=== PATIENT | female | born 1955 | race Caucasian/White ===

== ENCOUNTER 2018-11-05 07:13 | Emergency (ER) | payer MEDICARE, MEDICAID ==
[2018-11-05 07:50] LABS: ABS Basophils 0 10^3/ul (0-0.2); ABS Eosinophils 0.1 10^3/ul (0-0.6); ABS Lymphocytes 1.8 10^3/ul (1.0-4.8); ABS Monocytes 0.5 10^3/ul (0-0.8); ABS Neutrophils 2.3 10^3/ul (1.5-7.7); ABS Nucleated RBC 0 10^3/ul; Eosinophil % 1.4 %; Hematocrit 37 % (35-47); Hemoglobin 12.6 g/dl (12.0-16.0); Lymphocyte % 38.9 %; Mean Corpuscular HGB Conc 34 g/dl (31-36); Mean Corpuscular Hemoglobin 34 pg (27-31); Mean Corpuscular Volume 99 fL (80-97); Mean Platelet Volume 7.9 fL (7.4-10.4); Nucleated Red Blood Cells % 0.2; Platelet Count 355 10^3/ul (150-450); Red Blood Count 3.71 10^6/ul (4.00-5.40); Red Cell Distribution Width 13 % (10.5-15); White Blood Count 4.7 10^3/ul (3.5-10.8)
[2018-11-05 07:52] LABS: INR 0.85 (0.77-1.02)
[2018-11-05 08:07] LABS: Albumin 3.9 g/dL (3.2-5.2); Albumin/Globulin Ratio 1.3 (1-3); BUN/Creatinine Ratio 30.6 (8-20); Calcium 9.1 mg/dL (8.6-10.3); EGFR African American 99.6 (>60); EGFR Non-African American 82.3 (>60); Magnesium 1.8 mg/dL (1.9-2.7); Potassium 3.1 mmol/L (3.5-5.0); Total Bilirubin 0.4 mg/dL (0.2-1.0); Total Protein 6.9 g/dL (6.4-8.9); Troponin I 0.02 ng/mL (<0.04)
[2018-11-05 09:54] VITALS: BP 131/86
--- NOTE | 2018-11-05 12:41 | ED ---
Upper Extremity Pain - HPI Summary HPI Summary: 43-year-old female with a history of chronic neck and shoulder problems presenting to the ED with right arm numbness and tingling which is been intermittent since yesterday. She states she has a history of carpal tunnel and has experienced intermittent numbness and tingling to the hand, but this is the first time the numbness and tingling has been presenting to the entire arm. She denies any cardiac history. Denies any CP or SOB. She states the pain radiates to the right chest wall and is worse with palpation. Symptoms are not better with positioning or rest. She states she has received steroid injections in the past with some relief. She has not seen an orthopedic physician about her symptoms. - History of Current Complaint Chief Complaint: EDChestPainROMI Stated Complaint: NUMBNESS/TINGLING IN LEFT ARM/RT SIDE CHEST PAIN Time Seen by Provider: 11/05/18 07:28 Hx Obtained From: Patient Onset/Duration: Started Weeks Ago Timing: Constant Severity Initially: Mild Severity Currently: Mild Pain Location: Shoulder Character: Aching Aggravating Factor(s): Movement, Lifting, Flexion, Extension Alleviating Factor(s): Rest, Ice Associated Signs & Symptoms: Positive: Negative - Risk Factors Non-Orthopedic Risk Factor: Negative DVT Risk Factors: Negative Septic Arthritis Risk Factor: Negative Compartment Syndrome Risk Factors: Pain, Paresthesias - Allergies/Home Medications Allergies/Adverse Reactions: Allergies Allergy/AdvReac Type Severity Reaction Status Date / Time bupropion Allergy Anxiety Verified 11/05/18 07:22 shrimp Allergy Anaphylatic Verified 11/05/18 07:22 Shock zolpidem [From Ambien] Allergy Altered Verified 11/05/18 07:22 Mental Status PMH/Surg Hx/FS Hx/Imm Hx Previously Healthy: Yes Cardiovascular History: Reports: Hx Hypertension Respiratory History: Reports: Hx Asthma - Immunization History Hx Pertussis Vaccination: No Immunizations Up to Date: Yes Infectious Disease History: No Infectious Disease History: Reports: Hx Hepatitis - HEP C, Hx Human Immunodeficiency Virus (HIV) Denies: Traveled Outside the [place] in Last 30 Days - Family History Known Family History: Positive: Hypertension - Social History Occupation: Employed Full-time Lives: With Family Alcohol Use: Occasionally Hx Substance Use: No Substance Use Type: Reports: None Hx Tobacco Use: Yes Smoking Status (MU): Current Some Day Smoker Review of Systems Constitutional: Negative Negative: Fever, Chills, Fatigue, Skin Diaphoresis Negative: Palpitations, Chest Pain Negative: Shortness Of Breath, Cough Genitourinary: Negative Positive: no symptoms reported, see HPI Positive: Arthralgia - right neck pain radiating to the R hand with paresthesias. Negative: Myalgia Positive: Weakness, Paresthesia, Numbness Psychological: Normal All Other Systems Reviewed And Are Negative: Yes Physical Exam Triage Information Reviewed: Yes Vital Signs On Initial Exam: Initial Vitals Temp Pulse Resp BP Pulse Ox 97.8 F 71 16 122/78 95 11/05/18 07:17 11/05/18 07:17 11/05/18 07:17 11/05/18 07:17 11/05/18 07:17 Vital Signs Reviewed: Yes Appearance: Positive: Well-Nourished Skin: Positive: Warm, Skin Color Reflects Adequate Perfusion Head/Face: Positive: Normal Head/Face Inspection Eyes: Positive: EOMI, VETO, Conjunctiva Clear Neck: Positive: Supple, No Lymphadenopathy Respiratory/Lung Sounds: Positive: Clear to Auscultation, Breath Sounds Present Cardiovascular: Positive: RRR, Pulses are Symmetrical in both Upper and Lower Extremities. Negative: Leg Edema Left, Leg Edema Right Musculoskeletal: Positive: Pain @ - right neck pain radiating to the R hand with paresthesias Neurological: Positive: Alert, Oriented to Person Place, Time, Speech Normal Psychiatric: Positive: Affect/Mood Appropriate Diagnostics - Vital Signs Vital Signs Temp Pulse Resp BP Pulse Ox 11/05/18 09:30 97.7 F 79 16 131/86 98 11/05/18 09:26 131/86 11/05/18 09:01 69 16 141/78 98 11/05/18 09:00 68 18 97 11/05/18 08:31 68 15 127/75 96 11/05/18 08:02 66 11 125/69 97 11/05/18 08:00 68 16 94 11/05/18 07:31 70 25 120/78 95 11/05/18 07:17 97.8 F 71 16 122/78 95 - Laboratory Lab Results: Lab Results 11/05/18 11/05/18 11/05/18 Range/Units 07:36 07:36 07:36 WBC 4.7 (3.5-10.8) 10^3/ul RBC 3.71 L (4.00-5.40) 10^6/ul Hgb 12.6 (12.0-16.0) g/dl Hct 37 (35-47) % MCV 99 H (80-97) fL MCH 34 H (27-31) pg MCHC 34 (31-36) g/dl RDW 13 (10.5-15) % Plt Count 355 (150-450) 10^3/ul MPV 7.9 (7.4-10.4) fL Neut % (Auto) 49.1 % Lymph % (Auto) 38.9 % Cavalier % (Auto) 9.9 % Eos % (Auto) 1.4 % Baso % (Auto) 0.7 % Absolute Neuts (auto) 2.3 (1.5-7.7) 10^3/ul Absolute Lymphs (auto) 1.8 (1.0-4.8) 10^3/ul Absolute Monos (auto) 0.5 (0-0.8) 10^3/ul Absolute Eos (auto) 0.1 (0-0.6) 10^3/ul Absolute Basos (auto) 0 (0-0.2) 10^3/ul Absolute Nucleated RBC 0 10^3/ul Nucleated RBC % 0.2 INR (Anticoag Therapy) 0.85 (0.77-1.02) Sodium 138 (135-145) mmol/L Potassium 3.1 L (3.5-5.0) mmol/L Chloride 105 (101-111) mmol/L Carbon Dioxide 25 (22-32) mmol/L Anion Gap 8 (2-11) mmol/L BUN 22 (6-24) mg/dL Creatinine 0.72 (0.51-0.95) mg/dL Est GFR ( Amer) 99.6 (>60) Est GFR (Non-Af Amer) 82.3 (>60) BUN/Creatinine Ratio 30.6 H (8-20) Glucose 99 (70-100) mg/dL Lactic Acid (0.5-2.0) mmol/L Calcium 9.1 (8.6-10.3) mg/dL Magnesium 1.8 L (1.9-2.7) mg/dL Total Bilirubin 0.40 (0.2-1.0) mg/dL AST 14 (13-39) U/L ALT 15 (7-52) U/L Alkaline Phosphatase 107 H (34-104) U/L Total Creatine Kinase 62 (10-223) U/L Troponin I 0.02 (<0.04) ng/mL Total Protein 6.9 (6.4-8.9) g/dL Albumin 3.9 (3.2-5.2) g/dL Globulin 3.0 (2-4) g/dL Albumin/Globulin Ratio 1.3 (1-3) 11/05/18 Range/Units 07:36 WBC (3.5-10.8) 10^3/ul RBC (4.00-5.40) 10^6/ul Hgb (12.0-16.0) g/dl Hct (35-47) % MCV (80-97) fL MCH (27-31) pg MCHC (31-36) g/dl RDW (10.5-15) % Plt Count (150-450) 10^3/ul MPV (7.4-10.4) fL Neut % (Auto) % Lymph % (Auto) % Cavalier % (Auto) % Eos % (Auto) % Baso % (Auto) % Absolute Neuts (auto) (1.5-7.7) 10^3/ul Absolute Lymphs (auto) (1.0-4.8) 10^3/ul Absolute Monos (auto) (0-0.8) 10^3/ul Absolute Eos (auto) (0-0.6) 10^3/ul Absolute Basos (auto) (0-0.2) 10^3/ul Absolute Nucleated RBC 10^3/ul Nucleated RBC % INR (Anticoag Therapy) (0.77-1.02) Sodium (135-145) mmol/L Potassium (3.5-5.0) mmol/L Chloride (101-111) mmol/L Carbon Dioxide (22-32) mmol/L Anion Gap (2-11) mmol/L BUN (6-24) mg/dL Creatinine (0.51-0.95) mg/dL Est GFR ( Amer) (>60) Est GFR (Non-Af Amer) (>60) BUN/Creatinine Ratio (8-20) Glucose (70-100) mg/dL Lactic Acid 0.7 (0.5-2.0) mmol/L Calcium (8.6-10.3) mg/dL Magnesium (1.9-2.7) mg/dL Total Bilirubin (0.2-1.0) mg/dL AST (13-39) U/L ALT (7-52) U/L Alkaline Phosphatase (34-104) U/L Total Creatine Kinase (10-223) U/L Troponin I (<0.04) ng/mL Total Protein (6.4-8.9) g/dL Albumin (3.2-5.2) g/dL Globulin (2-4) g/dL Albumin/Globulin Ratio (1-3) Result Diagrams: 11/05/18 07:36 11/05/18 07:36 Lab Statement: Any lab studies that have been ordered have been reviewed, and results considered in the medical decision making process. Course/Dx - Course Course Of Treatment: On physical examination, patient has pain to palpation bilaterally to the shoulders. She is unable to abduct the right shoulder due to pain. She states the pain is from the right side of the neck which radiates down into the right arm. She states this been present for several months, however is now presenting as numbness and tingling. This is intermittent and she denies any numbness and tingling at this time. She states symptoms resolved after stretching. She was concerned over a possible cardiac component due to right-sided chest pain radiating from the right shoulder. EKG obtained which shows a normal sinus rhythm, LVH by voltage. Lungs CTA. RRR. Chest x- ray obtained and shows no acute cardiopulmonary disease. Labs obtained which show a troponin of 0.02 and otherwise WNL. Patient is able to rotate about the neck with mild discomfort. She will follow-up with orthopedics and her primary physician regarding an impingement versus tendinopathy syndrome. I'm not concerned over a cardiac component at this time. - Diagnoses Differential Diagnosis/HQI/PQRI: Positive: Strain, Sprain Provider Diagnoses: Paresthesia, Impingement syndrome, shoulder Discharge - Sign-Out/Discharge Documenting (check all that apply): Patient Departure Patient Received Moderate/Deep Sedation with Procedure: No - Discharge Plan Condition: Stable Disposition: HOME Patient Education Materials: Paresthesia (ED) Referrals: Gurpreet Acosta MD [Medical Doctor] - Shan CROUCH,David Garcia [Primary Care Provider] - Additional Instructions: Please follow up with orthopedics - Billing Disposition and Condition Condition: STABLE Disposition: Home
== END 2018-11-05 09:30 | disposition home or self-care (01) ==
LOC: ED 07:13
DX: R20.2 Paresthesia of skin (principal); M75.41 Impingement syndrome of right shoulder; I10 Essential (primary) hypertension; J45.909 Unspecified asthma, uncomplicated; B19.20 Unspecified viral hepatitis C without hepatic coma
CPT/HCPCS: 36415; 71046; 80053; 82550; 83605; 83735; 84484; 85025; 85610; 93005; 99283

== ENCOUNTER → 2019-01-25 08:36 | Day surgery (SDC) | payer MEDICARE, MEDICAID ==
[~2019-01-25 08:36] MED LIST: Acetaminophen TAB* 325 MG PO PRN; Buffered Lidocaine 1% SYRIN* 1 ML/SYRINGE INTRADERM ONE; Bupivacaine 0.25% SDV PF* 10 ML VIAL INJ ONE; Bupivacaine 0.5% W/EPI SDV* 30 ML VIAL ONE; Dexamethasone IV* 4 MG/ML 1 ML (4 MG) ONE; DiMENhydriNATE IV* 50 MG/ML VIAL IV PUSH PRN; Famotidine IV* 10 MG/ML 2 ML (20 mg) ONE; HYDROcodone/ACETAMIN 5-325 MG* 1 TAB PO PRN; Ketorolac INJ* 30 MG/ML 1 ML VIAL ONE; Lactated Ringers 1000 ML Bag* 1,000 ML IV SCH; Levalbuterol 0.63MG/3ML NEB* UNIT OF USE INH PRN; Lidocaine 1% INJ* 10 MG/ML 30 ML SDV ONE; Midazolam* 1 MG/ML 2 ML VIAL (2 MG) ONE; Naloxone* 0.4 MG/ML 1 ML VIAL IV PRN; Ondansetron INJ* 2 MG/ML VIAL IV PRN; PROCHLORPERAZINE INJ 5 MG/ML 2 ML VIAL IV PRN; Propofol* 10 MG/ML 20 ML BTL ONE; ceFAZolin 2 GM PREMIX in ORs 2 GM/50 ML BAG IVPB ONE; diPHENhydraMINE IV* 50 MG/ML 1 ml VIAL (BENADRYL) IV PRN; fentaNYL* 50 MCG/ML 2 ML VIAL (100 MCG VIAL) ONE
[2019-01-25 12:49] VITALS: BP 146/87
--- NOTE | 2019-01-27 03:33 | OP ---
DATE OF OPERATION: 01/25/19 - [facility] DATE OF : 59 SURGEON: Gurpreet Acosta MD DIECAST MACHINE OPERATOR: ARNOLDO Lopez. A physician assistant director of security was required for the length of the procedure for assistance with the patient's positioning, retraction, and closure. ANESTHESIOLOGIST: Femi Dove MD ANESTHESIA: LMA general anesthesia, local anesthesia with 9 cc of 1:1 ratio of lidocaine and Marcaine with epinephrine. PRE-OP DIAGNOSIS: Right carpal tunnel syndrome. POST-OP DIAGNOSIS: Right carpal tunnel syndrome. OPERATIVE PROCEDURE: Endoscopic right carpal tunnel release. ANTIBIOTICS: 2 g Ancef IV. IV FLUIDS: 800 cc Lactated Ringer's. TOURNIQUET TIME: 36 minutes. An upper tourniquet set at 250 mmHg. SKIN TO SKIN TIME: 36 minutes. SPECIMEN: None. IMPLANTS: None. COMPLICATIONS: None. ESTIMATED BLOOD LOSS: Minimal. 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 EMG nerve conduction study confirmed diagnosis present as well by history and physical exam. The patient opted for surgery. Discussed performing endoscopic carpal tunnel with the option to convert to open as needed. Discussed risks and potential complications. DESCRIPTION OF PROCEDURE: In preoperative holding, the patient signed the written consent. Operative extremities marked in preoperative holding. The patient was taken back to the operating room and kept on the stretcher. LMA anesthesia produced by Dr. Dove. Hand table applied to the stretcher. A mini time-out performed. 9 cc of local anesthetic infused into the right distal forearm and wrist. The patient was prepped and draped. Formal surgical time-out performed. Esmarch was applied and tourniquet was elevated. Made a 1.5 cm incision in a wrist flexion crease. I dissected down directly to the distal volar forearm fascia. Incised that carefully. Retracted that proximally and distally. I first incised this fascia proximal to the incision, opening up nicely. Next, I explored distal to my incision. Passed [place] down the carpal tunnel. I could view contents of the carpal tunnel deep to my incision. Confirmed appropriateness of my area of interest with [place] elevator. Next, placed dilators. Next, placed cannula and endoscope. I had a clear view of the transverse fibres of the transverse carpal ligament. No tenderness or neurologic structure visible between my blade and the ligament. Incised starting at the 80% point proximal to distal. I then moved most distally and completed my resection from distal to proximal. Wide retraction of the ends of the transverse carpal ligament signifying complete release. Next, used a probe to confirm complete release. I confirmed with [place] complete proximal and distal release. Irrigation of wound. Closure of the skin with a single figure of 12 stitch using nylon 4-0 suture. Xeroform, 4x4s, sterile Webril, Coban, bulky dressing. Tourniquet was dropped. The patient was lightened of sedation and LMA was removed. The patient was transferred to the PACU. DISPOSITION: The patient is discharged home when medically stable. The patient was given limited number of tramadol to take as needed for pain control. Wound care instructions provided. The patient has a scheduled post- operative appointment with me in clinic 10 to 14 days postoperatively. The patient is scheduled for carpal tunnel release of the contralateral left wrist 14 days from now. [id number]/[facility] #: [id number] DEVENDRA
== END | disposition home or self-care (01) ==
LOC: OR 08:36
PROVIDERS: ATTEND Orthopaedic Surgery
DX: G56.01 Carpal tunnel syndrome, right upper limb (principal); I10 Essential (primary) hypertension; G47.33 Obstructive sleep apnea (adult) (pediatric); J45.909 Unspecified asthma, uncomplicated; Z87.891 Personal history of nicotine dependence; M54.12 Radiculopathy, cervical region
CPT/HCPCS: J0690; J1100; J1885; J2250; J2704; J3010; J3490

== ENCOUNTER 2019-04-26 23:56 | Emergency (ER) | payer MEDICARE, MEDICAID ==
[2019-04-27] MEDS ORDERED: Ketorolac INJ* 30 MG/ML 1 ML VIAL IM ONE (00:29)
[2019-04-27] MEDS ORDERED: oxyCODONE/Acetamin 5/325 MG* TAB PO ONE (00:30)
--- NOTE | 2019-04-27 00:36 | ED ---
Upper Extremity Pain - HPI Summary HPI Summary: This patient is a 63 year old female presenting to [facility] with a chief complaint of bilateral hand pain since 3 days ago. she has a Hx of osteoarthritis, knobby finger joints that are normal for her. She states she is having difficulty gripping. She states the pain radiates up her arms. - History of Current Complaint Chief Complaint: EDExtremityUpper Stated Complaint: ARM AND HAND PAIN PER EMS Time Seen by Provider: 04/27/19 00:19 Hx Obtained From: Patient Onset/Duration: Started Days Ago Timing: Constant, Lasting Days Pain Location: Hand - Allergies/Home Medications Allergies/Adverse Reactions: Allergies Allergy/AdvReac Type Severity Reaction Status Date / Time shrimp Allergy Severe Anaphylatic Verified 01/25/19 09:05 Shock zolpidem [From Ambien] Allergy Severe Altered Verified 01/25/19 09:05 Mental Status bupropion Allergy Anxiety Verified 01/25/19 09:05 PMH/Surg Hx/FS Hx/Imm Hx Cardiovascular History: Reports: Hx Hypertension Denies: Other Cardiovascular Problems/Disorders Respiratory History: Reports: Hx Asthma, Hx Sleep Apnea - BiPAP Denies: Other Respiratory Problems/Disorders GI History: Reports: Hx Gastroesophageal Reflux Disease - OMEPRAZOLE Denies: Other GI Disorders History: Reports: Other Problems/Disorders - Has had UTIs in the past, not recent Musculoskeletal History: Reports: Hx Arthritis - Osteoarthritis-shoulders, neck and spine, Hx Tendonitis - Bilateral carpal tunnel Denies: Other Musculoskeletal History Sensory History: Reports: Hx Contacts or Glasses - "Cheaters" Denies: Hx Cataracts, Hx Hearing Aid Opthamlomology History: Reports: Hx Contacts or Glasses - "Cheaters" Denies: Hx Cataracts Neurological History: Reports: Hx Nerve Disease - bilateral carpal tunnel Psychiatric History: Reports: Hx Depression - prozac - Surgical History Surgery Procedure, Year, and Place: Bilateral Hip Replacements [place]. [place] [facility] [place]. C Section 1980 Hx Anesthesia Reactions: No Infectious Disease History: Yes Infectious Disease History: Reports: Hx Hepatitis - HEP C, Hx Human Immunodeficiency Virus (HIV) Denies: Traveled Outside the [place] in Last 30 Days - Family History Known Family History: Positive: Hypertension - Social History Alcohol Use: Occasionally Alcohol Amount: once in a great while socially Hx Substance Use: No Substance Use Type: Reports: None Hx Tobacco Use: Yes Smoking Status (MU): Current Some Day Smoker Type: Cigarettes Amount Used/How Often: once a month Have You Smoked in the Last Year: Yes Review of Systems Positive: Other - Hand pain 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 GENERAL: Patient is a well-developed and nourished FEMALE who is lying comfortable in the stretcher. Patient is not in any acute respiratory distress. HEAD AND FACE: No signs of trauma. No ecchymosis, hematomas or skull depressions. No sinus tenderness. EYES: PERRLA, EOMI x 2, No injected conjunctiva, no nystagmus. EARS: Hearing grossly intact. Ear canals and tympanic membranes are within normal limits. MOUTH: Oropharynx within normal limits. NECK: Supple, trachea is midline, no adenopathy, no JVD, no carotid bruit, no c- spine tenderness, neck with full ROM. CHEST: Symmetric, no tenderness at palpation LUNGS: Clear to auscultation bilaterally. No wheezing or crackles. CVS: Regular rate and rhythm, S1 and S2 present, no murmurs or gallops appreciated. ABDOMEN: Soft, non-tender. No signs of distention. No rebound no guarding, and no masses palpated. Bowel sounds are normal. EXTREMITIES: FROM in all major joints. Bilateral swelling of PIP and DIP joints consistent with osteoarthritis. NEURO: Alert and oriented x 3. No acute neurological deficits. Speech is normal and follows commands. SKIN: Dry and warm Triage Information Reviewed: Yes Vital Signs On Initial Exam: Initial Vitals Temp Pulse Resp BP Pulse Ox 97.6 F 71 18 140/78 98 04/27/19 00:12 04/27/19 00:12 04/27/19 00:12 04/27/19 00:12 04/27/19 00:12 Vital Signs Reviewed: Yes Diagnostics - Vital Signs Vital Signs Temp Pulse Resp BP Pulse Ox 04/27/19 00:12 97.6 F 71 18 140/78 98 - Laboratory Lab Statement: Any lab studies that have been ordered have been reviewed, and results considered in the medical decision making process. Course/Dx - Course Course Of Treatment: This patient is a 63 year old female presenting to [facility] with a chief complaint of bilateral hand pain since 3 days ago. Physical exam revealed bilateral swelling of PIP and DIP joints consistent with osteoarthritis. She was instructed to follow up with her doctor naturopathic and she was prescribed percocet. A plan for discharge was discussed with the patient and she was agreeable with this plan. - Diagnoses Provider Diagnoses: Osteoarthritis of hands, bilateral Discharge - Sign-Out/Discharge Documenting (check all that apply): Patient Departure - Discharge Patient Received Moderate/Deep Sedation with Procedure: No - Discharge Plan Condition: Stable Disposition: HOME Patient Education Materials: Osteoarthritis (ED) Referrals: Shan CROUCH,David Garcia [Primary Care Provider] - Additional Instructions: Follow up with your doctor naturopathic. - Attestation Statements Document Initiated by Scribe: Yes Documenting Scribe: Dragan Rodriguez Provider For Whom Isaacibe is Documenting (Include Credential): Idania Edmonds MD Scribe Attestation: Dragan De Leon, scribed for Idania Edmonds MD on 04/27/19 at 0115. Status of Scribe Document: Ready
[2019-04-27] MEDS ORDERED: Morphine 4 MG/ML VIAL (1 ml) 4 MG/ML VIAL IM ONE (01:32)
[2019-04-27] MEDS ORDERED: PROCHLORPERAZINE INJ 5 MG/ML 2 ML VIAL IM ONE (01:32)
[2019-04-27 04:17] VITALS: BP 135/79
== END 2019-04-27 01:25 | disposition home or self-care (01) ==
LOC: ED 23:56
DX: M19.042 Primary osteoarthritis, left hand (principal); M19.041 Primary osteoarthritis, right hand; I10 Essential (primary) hypertension; J45.909 Unspecified asthma, uncomplicated; K21.9 Gastro-esophageal reflux disease without esophagitis; F17.210 Nicotine dependence, cigarettes, uncomplicated; Z79.899 Other long term (current) drug therapy; Z88.8 Allergy status to other drugs, medicaments and biological substances
CPT/HCPCS: 96372; 99282; A9270-GY; J0780; J1885; J2270

== ENCOUNTER 2019-05-26 22:13 | Emergency (ER) | payer MEDICARE, MEDICAID ==
[2019-05-26 22:21] VITALS: BP 115/70
--- NOTE | 2019-05-26 22:28 | ED ---
Medical Screening - HPI Summary HPI Summary: Patient presents for legal blood draw by PD. Denies any pain, injury or symptoms. Alert and oriented 4. - History of Current Complaint Chief Complaint: EDGeneral Stated Complaint: LEGAL BLOOD DRAW PER POLICE Time Seen by Provider: 05/26/19 22:27 PMH/Surg Hx/FS Hx/Imm Hx Cardiovascular History: Reports: Hx Hypertension Denies: Other Cardiovascular Problems/Disorders Respiratory History: Reports: Hx Asthma, Hx Sleep Apnea - BiPAP Denies: Other Respiratory Problems/Disorders GI History: Reports: Hx Gastroesophageal Reflux Disease - OMEPRAZOLE Denies: Other GI Disorders History: Reports: Other Problems/Disorders - Has had UTIs in the past, not recent Musculoskeletal History: Reports: Hx Arthritis - Osteoarthritis-shoulders, neck and spine, Hx Tendonitis - Bilateral carpal tunnel Denies: Other Musculoskeletal History Sensory History: Reports: Hx Contacts or Glasses - "Cheaters" Denies: Hx Cataracts, Hx Hearing Aid Opthamlomology History: Reports: Hx Contacts or Glasses - "Cheaters" Denies: Hx Cataracts Neurological History: Reports: Hx Nerve Disease - bilateral carpal tunnel Psychiatric History: Reports: Hx Depression - prozac - Surgical History Surgery Procedure, Year, and Place: Bilateral Hip Replacements [place]. [place] [facility] [place]. C Section 1981 Hx Anesthesia Reactions: No Infectious Disease History: No Infectious Disease History: Reports: Hx Hepatitis - HEP C, Hx Human Immunodeficiency Virus (HIV) Denies: Traveled Outside the [place] in Last 30 Days - Family History Known Family History: Positive: Hypertension - Social History Alcohol Use: Occasionally Alcohol Amount: once in a great while socially Hx Substance Use: No Substance Use Type: Reports: None Hx Tobacco Use: Yes Smoking Status (MU): Current Some Day Smoker Type: Cigarettes Amount Used/How Often: once a month Have You Smoked in the Last Year: Yes Review of Systems Constitutional: Negative Eyes: Negative ENT: Negative Cardiovascular: Negative Respiratory: Negative Gastrointestinal: Negative Genitourinary: Negative Musculoskeletal: Negative Skin: Negative Neurological: Negative Psychological: Normal All Other Systems Reviewed And Are Negative: Yes Physical Exam Triage Information Reviewed: Yes Vital Signs On Initial Exam: Initial Vitals Temp Pulse Resp BP Pulse Ox 97.6 F 77 18 115/70 95 05/26/19 22:19 05/26/19 22:19 05/26/19 22:19 05/26/19 22:19 05/26/19 22:19 Vital Signs Reviewed: Yes Appearance: Positive: Well-Appearing Skin: Positive: Warm Head/Face: Positive: Normal Head/Face Inspection Eyes: Positive: Normal Neck: Positive: Supple Respiratory/Lung Sounds: Positive: Clear to Auscultation Cardiovascular: Positive: Normal Abdomen Description: Positive: Nontender Musculoskeletal: Positive: Normal Neurological: Positive: Normal Psychiatric: Positive: Normal AVPU Assessment: Alert - Nolan Coma Scale Best Eye Response: 4 - Spontaneous Best Motor Response: 6 - Obeys Commands Best Verbal Response: 5 - Oriented Coma Scale Total: 15 Diagnostics - Vital Signs Vital Signs Temp Pulse Resp BP Pulse Ox 05/26/19 22:19 97.6 F 77 18 115/70 95 - Laboratory Lab Statement: Any lab studies that have been ordered have been reviewed, and results considered in the medical decision making process. Course/Dx - Course Course Of Treatment: Legal blood draw by PD. Vital signs within normal limits. - Diagnoses Provider Diagnoses: Routine lab draw Discharge ED - Sign-Out/Discharge Documenting (check all that apply): Patient Departure Patient Received Moderate/Deep Sedation with Procedure: No - Discharge Plan Condition: Stable Disposition: HOME Referrals: Shan CROUCH,David Garcia [Primary Care Provider] - - Billing Disposition and Condition Condition: STABLE Disposition: Home
== END 2019-05-26 22:44 | disposition home or self-care (01) ==
LOC: ED 22:13
DX: Z04.89 Encounter for examination and observation for other specified reasons (principal); I10 Essential (primary) hypertension; J45.909 Unspecified asthma, uncomplicated; K21.9 Gastro-esophageal reflux disease without esophagitis; F32.9 Major depressive disorder, single episode, unspecified; Z72.0 Tobacco use
CPT/HCPCS: 99281

== ENCOUNTER 2022-10-12 13:18 | Observation (INO) ==
[2022-10-12] MEDS ORDERED: NS 0.9% 1000 ml BAG 1,000 ML IV ONE ×2 (14:50→16:33)
[2022-10-12 15:54] LABS: INR 1.07 (0.88-1.18)
[2022-10-12 16:00] LABS: ABS Lymphocytes 1.4 10^3/ul (1.0-4.8); ABS Monocytes 1.5 10^3/ul (0-0.8); ABS Neutrophils 5.4 10^3/ul (1.5-7.7); Eosinophil % 0.3 %; Hematocrit 43 % (35-47); Hemoglobin 14.8 g/dL (12.0-16.0); Mean Corpuscular HGB Conc 35 g/dL (31-36); Mean Corpuscular Hemoglobin 34 pg (27-31); Mean Corpuscular Volume 97 fL (80-97); Mean Platelet Volume 8.6 fL (7.4-10.4); Nucleated Red Blood Cells % 0.2; Platelet Count 390 10^3/uL (150-450); Red Blood Count 4.43 10^6 /uL (3.70-4.87); Red Cell Distribution Width 13 % (10-15); White Blood Count 8.5 10^3/uL (3.5-10.8)
[2022-10-12 16:35] LABS: Albumin 4.1 g/dL (3.2-5.2); Albumin/Globulin Ratio 1.3 (1-3); C Reactive Protein 201.19 mg/L (<8.01); Calcium 9.5 mg/dL (8.6-10.3); Creatinine, Serum 4.27 mg/dL (0.51-0.95); Globulin 3.2 g/dL (2-4); Magnesium 1.9 mg/dL (1.9-2.7); Potassium 2.9 mmol/L (3.5-5.0); Total Bilirubin 0.3 mg/dL (0.2-1.0); Total Protein 7.3 g/dL (6.4-8.9)
[2022-10-12] MEDS ORDERED: Potassium Chlor 20 meq TAB.ER PO ONE (16:42)
[2022-10-12] MEDS ORDERED: KCL 10 MEQ/50 ML IVPREMIX 10 MEQ/50 ML BAG IV ONE (16:42)
[2022-10-12 18:43] LABS: Osmolality Serum 300 mOsm/kg (275-295)
[2022-10-12] MEDS: cefTRIAXone 1 gm/50 mL D5W 1 GM/50 ML BAG IV SCH (19:46)
[2022-10-12] MEDS ORDERED: Albuterol/Ipratropium NEB.SOL (2.5/0.5 MG) 3 ML NEB.SOLN INH PRN (20:47)
[2022-10-12] MEDS ORDERED: Heparin 5000 UNITS/ML 1 mL VIAL SUBCUT SCH (21:00)
[2022-10-12] MEDS: metroNIDAZOLE IV 500 MG/100ML 500 MG/100 ML BAG IVPB SCH (21:12)
[2022-10-12] MEDS: Heparin 5000 UNITS/ML 1 mL VIAL SUBCUT SCH (23:26)
[2022-10-12] MEDS: NS 0.9% w/ 20 Meq KCL 1000 ml 1,000 ML IV SCH (23:29)
[2022-10-12 23:50] LABS: Calcium 8.4 mg/dL (8.6-10.3); Creatinine, Serum 4.41 mg/dL (0.51-0.95); Potassium 3.2 mmol/L (3.5-5.0); eGFR CKD-EPI 10.5 (>60)
[2022-10-13] MEDS: metroNIDAZOLE IV 500 MG/100ML 500 MG/100 ML BAG IVPB SCH ×3 (03:46→20:12)
[2022-10-13] MEDS: Heparin 5000 UNITS/ML 1 mL VIAL SUBCUT SCH ×3 (05:23→20:22)
[2022-10-13 05:56] LABS: ABS Eosinophils 0.1 10^3/ul (0-0.6); ABS Lymphocytes 1.7 10^3/ul (1.0-4.8); ABS Monocytes 1.3 10^3/ul (0-0.8); ABS Neutrophils 3.7 10^3/ul (1.5-7.7); Eosinophil % 1.1 %; Hematocrit 35 % (35-47); Hemoglobin 12.4 g/dL (12.0-16.0); Lymphocyte % 24.6 %; Mean Corpuscular HGB Conc 36 g/dL (31-36); Mean Corpuscular Hemoglobin 34 pg (27-31); Mean Corpuscular Volume 97 fL (80-97); Mean Platelet Volume 8.2 fL (7.4-10.4); Platelet Count 309 10^3/uL (150-450); Red Blood Count 3.59 10^6 /uL (3.70-4.87); Red Cell Distribution Width 13 % (10-15); White Blood Count 6.8 10^3/uL (3.5-10.8)
[2022-10-13 06:04] LABS: Urine Appearance Cloudy; Urine Bilirubin Negative (Negative); Urine Blood Negative (Negative); Urine Color Amber; Urine Glucose Negative (Negative); Urine Ketones Negative (Negative); Urine Nitrite Negative (Negative); Urine Protein 1+(30 mg/dL) (Negative); Urine Urobilinogen Negative (Negative)
[2022-10-13 06:08] LABS: Urine Osmo 342 mOsm/kg (150-1150)
[2022-10-13 06:15] LABS: Albumin 3.1 g/dL (3.2-5.2); Albumin/Globulin Ratio 1.3 (1-3); Creatinine, Serum 4.14 mg/dL (0.51-0.95); Globulin 2.3 g/dL (2-4); Magnesium 1.6 mg/dL (1.9-2.7); Potassium 3.1 mmol/L (3.5-5.0); Total Bilirubin 0.2 mg/dL (0.2-1.0); Total Protein 5.4 g/dL (6.4-8.9); eGFR CKD-EPI 11.4 (>60)
[2022-10-13 06:34] LABS: Urine Bacteria Absent (Absent); Urine Red Blood Cell 2+(6-10/hpf) (Absent); Urine Squamous Epithelial Cell Present (Absent); Urine White Blood Cell 2+(11-20/hpf) (Absent)
[2022-10-13] MEDS ORDERED: Magnesium Sulfate IV 3 GM in NS 0.9% 100 ml BAG 100 ML IVPB ONE (06:39)
[2022-10-13 06:48] LABS: Urine Creatinine 382.32 mg/dL; Urine Microalbumin/Creatinine 4.4 mcg/mg (<31)
[2022-10-13] MEDS ORDERED: Potassium Chlor 20 meq TAB.ER PO ONE ×4 (09:00→14:00)
[2022-10-13] MEDS: NS 0.9% w/ 20 Meq KCL 1000 ml 1,000 ML IV SCH ×2 (10:26→20:10)
[2022-10-13 10:41] LABS: Calcium 7.9 mg/dL (8.6-10.3); Creatinine, Serum 3.45 mg/dL (0.51-0.95); Potassium 3.2 mmol/L (3.5-5.0); eGFR CKD-EPI 14.1 (>60)
[2022-10-13] MEDS: cefTRIAXone 1 gm/50 mL D5W 1 GM/50 ML BAG IV SCH (18:17)
[2022-10-13 18:34] LABS: Hepatitis B Surface Antigen Nonreactive (Nonreactive)
[2022-10-13 18:51] LABS: Hepatitis B Surface Ab Immune (Immune)
[2022-10-13 18:57] LABS: Calcium 8.5 mg/dL (8.6-10.3); Creatinine, Serum 2.46 mg/dL (0.51-0.95); Potassium 4.3 mmol/L (3.5-5.0); eGFR CKD-EPI 21.2 (>60)
[2022-10-13 19:58] LABS: Hepatitis C Antibody Reactive (Negative)
[2022-10-14] MEDS: metroNIDAZOLE IV 500 MG/100ML 500 MG/100 ML BAG IVPB SCH ×2 (03:26→13:00)
[2022-10-14] MEDS: Heparin 5000 UNITS/ML 1 mL VIAL SUBCUT SCH ×2 (05:18→13:00)
[2022-10-14 05:46] LABS: ABS Eosinophils 0.1 10^3/ul (0-0.6); ABS Lymphocytes 1.5 10^3/ul (1.0-4.8); ABS Monocytes 1.1 10^3/ul (0-0.8); ABS Neutrophils 4.3 10^3/ul (1.5-7.7); Eosinophil % 1.5 %; Hematocrit 34 % (35-47); Hemoglobin 11.7 g/dL (12.0-16.0); Lymphocyte % 21.1 %; Mean Corpuscular HGB Conc 35 g/dL (31-36); Mean Corpuscular Hemoglobin 34 pg (27-31); Mean Corpuscular Volume 99 fL (80-97); Mean Platelet Volume 8.1 fL (7.4-10.4); Platelet Count 318 10^3/uL (150-450); Red Blood Count 3.41 10^6 /uL (3.70-4.87); Red Cell Distribution Width 13 % (10-15)
[2022-10-14 06:14] LABS: Calcium 8.5 mg/dL (8.6-10.3); Creatinine, Serum 1.33 mg/dL (0.51-0.95); eGFR CKD-EPI 44.4 (>60)
[2022-10-14] MEDS: NS 0.9% w/ 20 Meq KCL 1000 ml 1,000 ML IV SCH (07:00)
[2022-10-14 11:13] VITALS: BP 120/61
[2022-10-14 12:43] LABS: Calcium 8.3 mg/dL (8.6-10.3); Creatinine, Serum 0.97 mg/dL (0.51-0.95); eGFR CKD-EPI 64.8 (>60)
[2022-10-17 14:08] LABS: Complement C3 141 mg/dL (75 - 175)
[2022-10-18 11:51] LABS: C-ANCA Negative (Negative); P-ANCA Negative (Negative)
== END 2022-10-14 15:15 | disposition home or self-care (01) ==
LOC: EDHOLD 13:18 → ED 13:18 → MED 21:50
PROVIDERS: ADMIT Hospitalist; ATTEND Hospitalist